=== PATIENT | male | born 1960 | race Caucasian/White ===

== ENCOUNTER 2017-09-30 09:27 | Emergency (ER) | payer OTHER ==
[~2017-09-30] VITALS: Ht 177.8 cm; Wt 86.2 kg
[2017-09-30 09:32] VITALS: BP_SYST 149
[2017-09-30] MEDS ORDERED: LIDOCAINE 1%, 20 ML MDV 20 ML ONE (10:17)
[2017-09-30 10:53] VITALS: BP_SYST 132
== END 2017-09-30 10:53 | disposition home or self-care (01) ==
LOC: SED 09:27
DX: S61.211A Laceration without foreign body of left index finger without damage to nail, initial encounter (principal); Z88.0 Allergy status to penicillin; W26.8XXA Contact with other sharp object(s), not elsewhere classified, initial encounter; Y93.89 Activity, other specified; Y92.89 Other specified places as the place of occurrence of the external cause; Y99.8 Other external cause status
CPT/HCPCS: 12002; 99283; J2001